=== PATIENT | male | born 1970 | race Asian ===

== ENCOUNTER → 2016-12-10 | Outpatient (CLI) | payer OTHER ==
--- NOTE | ~2016-12-10 | MR112 ---
[facility] A Service of [facility] & [facility] RADIOLOGY TEXT RESULTS PATIENT: MERLIN YOST LOCATION: [facility] : 66 UNIT #: [id number] AGE: [address]: Neeraj Carranza II, MD SEX: M ORDER DR: [id number] [facility] [address] [place], [place] [address] [id number] O MR#: [id number] Acc #: [id number] NAME: MERLIN YOST : 1970 SEX: M STUDY DATE/TIME: 12/10/2016 11:37 UNIT: [facility] ROOM: STUDY DESCRIPTION: MR Lumbar WWo Contrast Attending Physician: Neeraj Carranza II., M.D. Referring Physician: Neeraj Carranza II., M.D. Ordering Physician: Neeraj Carranza II., M.D. Primary Care Physician: Ashley Longoria M.D. MRI CENTER REPORT This report is preliminary unless electronic signature is present. EXAM MRI of the lumbar spine, with and without contrast, 12/10/2016. COMPARISON MRI of the lumbar spine, without contrast, 09/17/2008; CT lumbar spine without contrast, 05/21/2016. HISTORY Low back pain with pain radiating down the right leg. Numbness and tingling for 2 months. TECHNIQUE Multisequence, multiplanar imaging of the lumbar spine was obtained with and without contrast. 15 mL of MultiHance were administered intravenously. FINDINGS Vertebral body heights and alignment are preserved. Degenerative disc signal loss is noted, particularly at the thoracolumbar junction. The conus terminates at L1. Signals of conus and cauda equina are within normal limits. There is mild prominence of the posterior epidural fat at the level of L3-L4 and, to a lesser degree, at L2-L3 and L1-L2, with slightly decreased size of the thecal sac when compared to the other levels. It does not appear to have significantly worsened in the last 8 years. Pre- and paravertebral soft tissues do not demonstrate any significant abnormality. Paraspinal muscles, pre- and paravertebral soft tissues do not demonstrate any significant abnormality. There is no soft tissue distortion or edema noted. Retroperitoneum is unremarkable. L1-L2: Concentric disc bulge with right central small protrusion with mild canal stenosis and mild inferior bilateral neural foraminal encroachment without nerve impingement. [facility] A Service of [facility] RADIOLOGY TEXT RESULTS PATIENT: MERLIN YOST [facility] UNIT #: [id number] AGE: [address]: Neeraj Carranza II, MD SEX: M ORDER DR: L2-L3: Mild disc bulge with mild to moderate right facet hypertrophic changes and mild inferior bilateral neural foraminal narrowing without nerve impingement. Mild canal stenosis. L3-L4: Concentric disc bulge with mild canal stenosis, mild bilateral facet changes, and mild bilateral neural foraminal narrowing. L4-L5: Concentric duodenal bulb with mild bilateral facet changes, particularly on the right. Borderline-sized to mild canal stenosis, mild bilateral neural foraminal narrowing. Mild bilateral lateral recess encroachment. L5-S1: Minimal bilateral facet change, but otherwise unremarkable. IMPRESSION 1. There is a right central protrusion at L1-L2, extending to the right subarticular region. It causes mild mass effect in the adjacent thecal sac, but the thecal sac itself is small at this level. 2. Small thecal sac is noted from L1-L2 to L3-L4 levels without any significant focal disc height or ligamentum flavum thickening. Partly, it could be related to congenitally short pedicles. Mild inferior bilateral neural foraminal encroachment is seen. 3. No acute fracture or subluxation. 4. Postcontrast sequences do not demonstrate enhancing lesions. Dictated by... Mariel Narayan M.D. THIS IS AN ELECTRONICALLY VERIFIED REPORT Mariel Narayan M.D. at 12/12/2016 4:15 PM CPR/lori TD: 12/12/2016 13:09 JOB #: [id number] MRI CENTER REPORT Page 1 of 1 COPY
== END | disposition home or self-care (01) ==
LOC: CMRI 11-28 15:00
DX: R20.0 Anesthesia of skin (principal); M51.26 Other intervertebral disc displacement, lumbar region
CPT/HCPCS: 72158; A9577